=== PATIENT | male | born 1970 | race Asian ===

== ENCOUNTER 2023-07-24 19:53 | Emergency (ER) | payer OTHER ==
[~2023-07-24] VITALS: Ht 172.7 cm; Wt 72.6 kg
[2023-07-24] MEDS ORDERED: ACETAMINOPHEN 500 MG GEL..CAP PO STA (21:07)
[2023-07-24 21:34] LABS: HEMOGLOBIN 14.7 g/dL (13-16.00); MEAN CELL VOLUME 90.4 fL (80.0-100.00); MEAN CORPUSCULAR HEMOGLOBIN 30.8 pg (27.00-32.0); RED BLOOD COUNT 4.76 M/uL (4.00-6.00); RED CELL DISTRIBUTION WIDTH 13.3 % (11.5-14.5)
[2023-07-24 21:35] LABS: PLATELET COUNT 62 K/uL (150-450)
== END 2023-07-24 22:31 | disposition home or self-care (01) ==
LOC: ER 19:53
PROVIDERS: Emergency Medicine
DX: A90 Dengue fever [classical dengue] (principal)